=== PATIENT | female | born 1965 | race Caucasian/White ===

== ENCOUNTER 2022-03-03 18:07 | Emergency (ER) | payer OTHER ==
[~2022-03-03 18:07] MED LIST: ASPIRIN CHEWABL81 MG PO; CHANTIX1 MG PO; CLARITIN10 MG PO; COZAAR 25MG TAB25 MG PO; CYMBALTA60 MG PO; FLONASE 0.05% N16 GM; FUROSEMIDE40 MG PO; K-DUR TAB 20 M20 MEQ PO; LOPRESSOR 25 MG25 MG PO; LOPRESSOR 50 MG50 MG PO; NICOTINE PATCH1 EAC5 TD; PROVENTIL HFA6.7 GM INH; SYMBICORT 160-1 INHA INH; VITAMIN B-121000 MCG SL
== END 2022-03-03 18:55 | disposition left against medical advice (07) ==
LOC: ER1 18:07
DX: Z53.21 Procedure and treatment not carried out due to patient leaving prior to being seen by health care provider (principal)